=== PATIENT | male | born 1950 | race Caucasian/White ===

== ENCOUNTER → 2016-07-07 | Outpatient (CLI) | payer MEDICARE, OTHER ==
[2016-07-07 12:05] LABS: MEAN CORPUSCULAR HGB CONC 32.4 g/dl (32.0-36.5); MEAN CORPUSCULAR VOLUME 86.6 fl (80.0-96.0); RED CELL DISTRIBUTION WIDTH 13.4 % (11.5-14.5); WHITE BLOOD COUNT 6.5 K/mm3 (4.0-10.0)
[2016-07-09 14:15] LABS: PSA TOTAL 1.7 ng/mL (0.0-4.0); SEX HORMONE BINDING GLOBULIN 35.7 nmol/L (19.3-76.4)
== END ==
LOC: M LRY 07:57
PROVIDERS: ATTEND Urology
DX: E29.1 Testicular hypofunction (principal)

== ENCOUNTER → 2016-07-22 | Outpatient (REF) | payer MEDICARE, OTHER ==
[2016-07-22 17:56] LABS: ALBUMIN 3.9 GM/DL (3.2-5.2); ALBUMIN/GLOBULIN RATIO 1.34 (1.00-1.93); ALKALINE PHOSPHATASE 90 U/L (45-117); ALT/SGPT 25 U/L (12-78); ANION GAP 7 MEQ/L (8-16); AST/SGOT 17 U/L (15-37); BILIRUBIN,TOTAL 0.8 MG/DL (0.2-1.0); BLOOD UREA NITROGEN 16 MG/DL (7-18); CARBON DIOXIDE LEVEL 29 MEQ/L (21-32); CHLORIDE LEVEL 106 MEQ/L (98-107); CHOLESTEROL LEVEL 124 MG/DL (<200); CREATININE FOR GFR 1.02 MG/DL (0.70-1.30); GLOMERULAR FILTRATION RATE > 60.0 (>49); GLUCOSE, FASTING 91 MG/DL (80-110); POTASSIUM SERUM 4.7 MEQ/L (3.5-5.1); SODIUM LEVEL 142 MEQ/L (136-145); TOTAL PROTEIN 6.8 GM/DL (6.4-8.2); TRIGLYCERIDES LEVEL 165 MG/DL (<150)
[2016-07-22 18:34] LABS: MEAN CORPUSCULAR HEMOGLOBIN 28.6 pg (27.0-33.0); MEAN CORPUSCULAR HGB CONC 33.4 g/dl (32.0-36.5); MEAN CORPUSCULAR VOLUME 85.7 fl (80.0-96.0); RED CELL DISTRIBUTION WIDTH 13.6 % (11.5-14.5); WHITE BLOOD COUNT 6.6 K/mm3 (4.0-10.0)
== END ==
LOC: M SFHCLERA 10:13
PROVIDERS: ATTEND Family Medicine
DX: E78.2 Mixed hyperlipidemia (principal)
CPT/HCPCS: 80053; 80061; 82043; 85027; G0463

== ENCOUNTER → 2016-12-22 | Outpatient (REF) | payer MEDICARE, OTHER | LOC: M SFHCLERA 08:53 | PROVIDERS: ATTEND Family Medicine | DX: E29.1 Testicular hypofunction (principal); E55.9 Vitamin D deficiency, unspecified | CPT/HCPCS: 82306; 84402; 84403; G0463 ==

== ENCOUNTER 2017-05-04 06:40 | Day surgery (SDC) | payer MEDICARE, OTHER ==
[~2017-05-04] VITALS: Ht 172.7 cm; Wt 118.3 kg
[~2017-05-04 06:40] MED LIST: ALLO100T PO; ATOR40TA75 PO; CENT1TAB13 PO; LISI10TA4 PO; LUTE20TA PO; OCUVCAP2 PO; PROS5TAB PO; PROZ20CA11 PO; TARTCAP PO; TEST200I14 IM; VITA1CAP7 PO; VITAMIN B 1 PO; [UNRECOGNIZED DRUG - CODE] PO
[2017-05-04] MEDS ORDERED: NS 500 ML IV SCH (06:45)
[2017-05-04] MEDS ORDERED: PROPOFOL 200 MG/20 ML VIAL As Ordered ONE (07:07)
[2017-05-04] MEDS ORDERED: LIDOCAINE 2% INJ 100 MG/5 ML SDV (FOR ANES.) As Ordered ONE (07:09)
--- NOTE | 2017-05-04 07:58 | ROOR ---
Patient Name: Kiel Becerra Procedure Date: 05/04/2017 7:45 AM Date of : 1950 Age: 66 Room: [facility] Gender: Male Note Status: Finalized Procedure: Total Colonoscopy to Cecum Indications: High risk colon cancer surveillance: Personal history of colonic polyps, Last colonoscopy: 2013 Providers: Gabriele Purcell MD Referring MD: Ephraim Mccormack MD Requesting Provider: Medicines: Monitored Anesthesia Care Complications: No immediate complications. Procedure: Pre-Anesthesia Assessment: - The heart rate, respiratory rate, oxygen saturations, blood pressure, adequacy of pulmonary ventilation, and response to care were monitored throughout the procedure. The Colonoscope was introduced through the anus and advanced to the cecum, identified by appendiceal orifice and ileocecal valve. The colonoscopy was performed without difficulty. The patient tolerated the procedure well. The quality of the bowel preparation was excellent. Findings: The perianal and digital rectal examinations were normal. Non-bleeding internal hemorrhoids were found during retroflexion. The hemorrhoids were small and Grade I (internal hemorrhoids that do not prolapse). Scattered small-mouthed diverticula were found in the recto-sigmoid colon, sigmoid colon and descending colon. The exam was otherwise without abnormality on direct and retroflexion views. Impression: - Non-bleeding internal hemorrhoids. - Diverticulosis in the recto-sigmoid colon, in the sigmoid colon and in the descending colon. - The examination was otherwise normal on direct and retroflexion views. - No specimens collected. - The exam was otherwise normal to the cecum. Recommendation: - Patient has a contact number available for emergencies. The signs and symptoms of potential delayed complications were discussed with the patient. Return to normal activities tomorrow. Written discharge instructions were provided to the patient. - High fiber diet. - Discharge patient to home. - Continue present medications. - Repeat colonoscopy in 5 years for surveillance. - Return to referring physician. - The findings and recommendations were discussed with the patient's family. Gabriele Purcell MD Gabriele Purcell MD 05/04/2017 7:58:25 AM This report has been signed electronically. Number of Addenda: 0 Note Initiated On: 05/04/2017 7:45 AM Estimated Blood Loss: Estimated blood loss: none.
[2017-05-04 08:26] VITALS: BP 134/81
== END 2017-05-04 08:32 | disposition home or self-care (01) ==
LOC: M OPP 06:40
PROVIDERS: ATTEND Internal Medicine Gastroenterology
DX: Z12.11 Encounter for screening for malignant neoplasm of colon (principal); Z86.010 Personal history of colon polyps; K64.0 First degree hemorrhoids; K57.30 Diverticulosis of large intestine without perforation or abscess without bleeding; I10 Essential (primary) hypertension; E78.5 Hyperlipidemia, unspecified; M10.9 Gout, unspecified; M19.90 Unspecified osteoarthritis, unspecified site; M54.9 Dorsalgia, unspecified; Z85.820 Personal history of malignant melanoma of skin; R42 Dizziness and giddiness; N40.1 Benign prostatic hyperplasia with lower urinary tract symptoms; G56.00 Carpal tunnel syndrome, unspecified upper limb; Z88.0 Allergy status to penicillin; Z88.8 Allergy status to other drugs, medicaments and biological substances; Z88.1 Allergy status to other antibiotic agents; Z79.899 Other long term (current) drug therapy; Z79.82 Long term (current) use of aspirin

== ENCOUNTER → 2017-07-21 | Outpatient (REF) | payer MEDICARE, OTHER ==
[2017-07-21 20:44] LABS: HEMATOCRIT 52.8 % (42.0-52.0); HEMOGLOBIN 17.2 g/dl (14.0-18.0); MEAN CORPUSCULAR HEMOGLOBIN 28.3 pg (27.0-33.0); MEAN CORPUSCULAR HGB CONC 32.6 g/dl (32.0-36.5); MEAN CORPUSCULAR VOLUME 86.8 fl (80.0-96.0); PLATELET COUNT, AUTOMATED 212 10^3/uL (150-450); RED BLOOD COUNT 6.08 10^6/uL (4.30-6.10); RED CELL DISTRIBUTION WIDTH 14.6 % (11.5-14.5); WHITE BLOOD COUNT 9.3 10^3/uL (4.0-10.0)
[2017-07-21 21:00] LABS: ALBUMIN 3.8 GM/DL (3.2-5.2); ALBUMIN/GLOBULIN RATIO 1.36 (1.00-1.93); ALKALINE PHOSPHATASE 81 U/L (45-117); ALT/SGPT 27 U/L (12-78); ANION GAP 8 MEQ/L (8-16); AST/SGOT 16 U/L (7-37); BLOOD UREA NITROGEN 14 MG/DL (7-18); CALCIUM LEVEL 8.7 MG/DL (8.8-10.2); CARBON DIOXIDE LEVEL 29 MEQ/L (21-32); CHLORIDE LEVEL 106 MEQ/L (98-107); CHOLESTEROL LEVEL 112 MG/DL (<200); CHOLESTEROL RISK RATIO 2.731 (<5); CREATININE FOR GFR 0.95 MG/DL (0.70-1.30); GLOMERULAR FILTRATION RATE > 60.0 (>49); GLUCOSE, FASTING 74 MG/DL (70-100); HDL CHOLESTEROL 41 MG/DL (>40); LDL CHOLESTEROL 50.4 MG/DL (<100); NON-HDL-C 71 MG/DL; POTASSIUM SERUM 4.7 MEQ/L (3.5-5.1); SODIUM LEVEL 143 MEQ/L (136-145); TOTAL PROTEIN 6.6 GM/DL (6.4-8.2); TRIGLYCERIDES LEVEL 103 MG/DL (<150)
[2017-07-21 21:01] LABS: ESTIMATED AVERAGE GLUCOSE 114 MG/DL (60-110); HEMOGLOBIN A1c 5.6 %
[2017-07-21 21:40] LABS: MALB URINE SIEMENS 47.5 MG/L; MAU/CREAT RATIO 21.4 MCG/MG (0.0-30.0)
== END ==
LOC: M SFHCLERA 16:30
DX: I10 Essential (primary) hypertension (principal); Z79.899 Other long term (current) drug therapy
CPT/HCPCS: 84443

== ENCOUNTER → 2017-10-03 | Outpatient (CLI) | payer MEDICARE, OTHER ==
[2017-10-03 11:37] LABS: HEMATOCRIT 50.5 % (42.0-52.0); HEMOGLOBIN 16.7 g/dl (13.5-17.5); MEAN CORPUSCULAR HEMOGLOBIN 28.4 pg (27.0-33.0); MEAN CORPUSCULAR HGB CONC 33.1 g/dl (32.0-36.5); MEAN CORPUSCULAR VOLUME 85.7 fl (80.0-96.0); PLATELET COUNT, AUTOMATED 200 10^3/uL (150-450); RED BLOOD COUNT 5.89 10^6/uL (4.30-6.10); RED CELL DISTRIBUTION WIDTH 14.6 % (11.5-14.5)
[2017-10-03 12:06] LABS: TESTOSTERONE 1005 NG/DL (241-827)
[2017-10-03 13:42] LABS: ESTRADIOL 59.8 PG/ML (<39.8)
[2017-10-04 08:11] LABS: SEX HORMONE BINDING GLOBULIN 34.5 nmol/L (19.3-76.4)
== END ==
LOC: M LRY 08:12
DX: E29.1 Testicular hypofunction (principal); R35.0 Frequency of micturition
CPT/HCPCS: 84403

== ENCOUNTER → 2018-01-09 | Outpatient (CLI) | payer MEDICARE, OTHER ==
[2018-01-10 14:28] LABS: PSA TOTAL 3.9 ng/mL (0.0-4.0)
== END ==
LOC: M LRY 08:21
DX: R97.20 Elevated prostate specific antigen [PSA] (principal)
CPT/HCPCS: 84154

== ENCOUNTER → 2018-03-20 | Outpatient (CLI) | payer MEDICARE, OTHER ==
[2018-03-20 12:35] LABS: HEMATOCRIT 46.3 % (42.0-52.0); HEMOGLOBIN 15.5 g/dl (13.5-17.5); MEAN CORPUSCULAR HEMOGLOBIN 29.5 pg (27.0-33.0); MEAN CORPUSCULAR HGB CONC 33.5 g/dl (32.0-36.5); PLATELET COUNT, AUTOMATED 202 10^3/uL (150-450); RED BLOOD COUNT 5.26 10^6/uL (4.30-6.10); RED CELL DISTRIBUTION WIDTH 13.4 % (11.5-14.5); WHITE BLOOD COUNT 6.2 10^3/uL (4.0-10.0)
[2018-03-20 12:48] LABS: TESTOSTERONE 690 NG/DL (241-827)
[2018-03-20 12:48] LABS: ESTRADIOL 40.9 PG/ML (<39.8)
[2018-03-22 00:11] LABS: PSA % FREE 18.8 % (.); PSA FREE 0.81 ng/mL; PSA TOTAL 4.3 ng/mL (0.0-4.0)
== END ==
LOC: M LRY 07:59
DX: E29.1 Testicular hypofunction (principal); R35.0 Frequency of micturition
CPT/HCPCS: 84403

== ENCOUNTER → 2018-06-16 | Outpatient (REF) | payer MEDICARE, OTHER ==
[2018-06-16 11:36] LABS: ALBUMIN 3.7 GM/DL (3.2-5.2); ALT/SGPT 24 U/L (12-78); BASO # 0.1 10^3/uL (0.0-0.2); BASO % 1.1 % (0.0-1.0); BILIRUBIN,TOTAL 0.7 MG/DL (0.2-1.0); BLOOD UREA NITROGEN 18 MG/DL (7-18); CALCIUM LEVEL 8.6 MG/DL (8.8-10.2); CARBON DIOXIDE LEVEL 28 MEQ/L (21-32); CHLORIDE LEVEL 104 MEQ/L (98-107); CHOLESTEROL LEVEL 120 MG/DL (<200); CHOLESTEROL RISK RATIO 3.076 (<5); EOS # 0.2 10^3/uL (0.0-0.50); EOS % 2.5 % (0.0-3.0); GLOMERULAR FILTRATION RATE > 60.0 (>42); GLUCOSE, FASTING 90 MG/DL (70-100); HDL CHOLESTEROL 39 MG/DL (>40); HEMATOCRIT 49.9 % (42.0-52.0); HEMOGLOBIN 16.5 g/dl (13.5-17.5); LDL CHOLESTEROL 50 MG/DL (<100); LYMPH # 2.1 10^3/uL (1.5-4.5); LYMPH % 29.3 % (24.0-44.0); MEAN CORPUSCULAR HEMOGLOBIN 28.8 pg (27.0-33.0); MEAN CORPUSCULAR HGB CONC 33.1 g/dl (32.0-36.5); MEAN CORPUSCULAR VOLUME 87.2 fl (80.0-96.0); MONO # 0.8 10^3/uL (0.0-0.8); MONO % 10.6 % (0.0-5.0); NEUTROPHILS % 55.9 % (36.0-66.0); NON-HDL-C 81 MG/DL; PLATELET COUNT, AUTOMATED 201 10^3/uL (150-450); POTASSIUM SERUM 4.9 MEQ/L (3.5-5.1); RED BLOOD COUNT 5.72 10^6/uL (4.30-6.10); SODIUM LEVEL 141 MEQ/L (136-145); TOTAL PROTEIN 6.4 GM/DL (6.4-8.2); TRIGLYCERIDES LEVEL 157 MG/DL (<150); WHITE BLOOD COUNT 7.1 10^3/uL (4.0-10.0)
[2018-06-16 12:27] LABS: MALB URINE SIEMENS 26.9 MG/L; MAU/CREAT RATIO 10.2 MCG/MG (0.0-30.0)
== END ==
LOC: M SFHCLERA 08:10
PROVIDERS: ATTEND Family Medicine
DX: I10 Essential (primary) hypertension (principal)

== ENCOUNTER → 2018-10-09 | Outpatient (CLI) | payer MEDICARE, OTHER ==
[~2018-10-09] MED LIST changes: +D-3-50003 PO; -VITA1CAP7 PO
[2018-10-09 12:19] LABS: HEMATOCRIT 45.4 % (42.0-52.0); HEMOGLOBIN 14.8 g/dl (13.5-17.5); MEAN CORPUSCULAR HEMOGLOBIN 28.4 pg (27.0-33.0); MEAN CORPUSCULAR HGB CONC 32.6 g/dl (32.0-36.5); MEAN CORPUSCULAR VOLUME 87.1 fl (80.0-96.0); PLATELET COUNT, AUTOMATED 189 10^3/uL (150-450); RED BLOOD COUNT 5.21 10^6/uL (4.30-6.10); WHITE BLOOD COUNT 6.1 10^3/uL (4.0-10.0)
[2018-10-09 12:34] LABS: ESTRADIOL 36.4 PG/ML (<39.8)
[2018-10-10 14:16] LABS: PSA TOTAL 3.5 ng/mL (0.0-4.0); SEX HORMONE BINDING GLOBULIN 41.5 nmol/L (19.3-76.4)
== END ==
LOC: M LRY 08:00
PROVIDERS: ATTEND Urology
DX: E29.1 Testicular hypofunction (principal); R97.20 Elevated prostate specific antigen [PSA]

== ENCOUNTER → 2018-12-13 | Outpatient (REF) | payer MEDICARE, OTHER ==
[2018-12-13 11:29] LABS: BLOOD UREA NITROGEN 21 MG/DL (7-18); CALCIUM LEVEL 9.5 MG/DL (8.8-10.2); CARBON DIOXIDE LEVEL 30 MEQ/L (21-32); CHLORIDE LEVEL 106 MEQ/L (98-107); CREATININE FOR GFR 1.03 MG/DL (0.70-1.30); GLOMERULAR FILTRATION RATE > 60.0 (>42); GLUCOSE, FASTING 94 MG/DL (70-100); SODIUM LEVEL 141 MEQ/L (136-145)
== END ==
LOC: M SFHCLERA 08:10
PROVIDERS: ATTEND Family Medicine
DX: I10 Essential (primary) hypertension (principal); R73.09 Other abnormal glucose
CPT/HCPCS: 80048; 83036; G0463

== ENCOUNTER → 2019-02-28 | Outpatient (CLI) | payer MEDICARE, OTHER ==
[2019-02-28 12:17] LABS: BLOOD UREA NITROGEN 21 MG/DL (7-18); CREATININE FOR GFR 0.86 MG/DL (0.70-1.30); GLOMERULAR FILTRATION RATE > 60.0 (>42)
== END ==
LOC: M LAB 11:22
PROVIDERS: ATTEND Otolaryngology
DX: H90.3 Sensorineural hearing loss, bilateral (principal)

== ENCOUNTER → 2019-03-06 | Outpatient (CLI) | payer MEDICARE, OTHER ==
[~2019-03-06] MED LIST changes: +PROHANCE 279.3MG/ML 15ML VIAL (A9576) As Ordered ONE; +PROHANCE 279.3MG/ML 5ML VIAL (A9576) As Ordered ONE
--- NOTE | 2019-03-06 09:40 | REP ---
MRI brain and posterior fossa without and with IV contrast: History: Bilateral sensorineural hearing loss. Technique: Axial, coronal, and sagittal imaging planes were utilized. T1 and T2-weighted sequences include spin-echo, fast spin echo, FLAIR, diffusion weighted scans, thin section gradient echo T2-weighted scans through the posterior fossa, and post gadolinium enhanced whole brain and posterior fossa imaging. The gadolinium enhancement dose is 20 mL of intravenous ProHance. MRI findings: Bony calvarium is intact. Craniocervical junction and upper cervical cord are normal in appearance. There is no MR evidence of paranasal sinus disease. No intraorbital abnormality is appreciated. Internal auditory canals are normal and symmetric. Seventh and eighth nerves are unremarkable within the canals. No CP angle cistern mass lesion or abnormal vascular structure is appreciated. Vestibular and cochlear apparatus appear normal bilaterally. Postcontrast images show no abnormal intercanalicular or extra canalicular gadolinium enhancement. There is no abnormal intracranial contrast enhancement. Turbo spin echo T2 and FLAIR images demonstrate a few scattered foci of subcortical and periventricular white matter hyperintensity consistent with mild small vessel changes. Diffusion weighted scans show no evidence to suggest acute ischemia. No mass or infarct is seen. Impression: Minimal small vessel changes. Otherwise negative MRI brain and posterior fossa study without and with IV gadolinium. Electronically Signed by Frank Esparza MD 03/06/2019 10:44 A
== END ==
LOC: M RAD 02-28 10:56
PROVIDERS: ATTEND Otolaryngology
DX: H90.3 Sensorineural hearing loss, bilateral (principal)
CPT/HCPCS: 70553; A9576

== ENCOUNTER → 2019-03-15 | Outpatient (CLI) | payer MEDICARE, OTHER ==
[~2019-03-15] MED LIST changes: -PROHANCE 279.3MG/ML 15ML VIAL (A9576) As Ordered ONE; -PROHANCE 279.3MG/ML 5ML VIAL (A9576) As Ordered ONE
[2019-03-15 12:07] LABS: HEMATOCRIT 45.2 % (42.0-52.0); HEMOGLOBIN 14.5 g/dl (13.5-17.5); MEAN CORPUSCULAR HEMOGLOBIN 28.7 pg (27.0-33.0); MEAN CORPUSCULAR HGB CONC 32.1 g/dl (32.0-36.5); MEAN CORPUSCULAR VOLUME 89.3 fl (80.0-96.0); PLATELET COUNT, AUTOMATED 201 10^3/uL (150-450); RED BLOOD COUNT 5.06 10^6/uL (4.30-6.10); WHITE BLOOD COUNT 5.9 10^3/uL (4.0-10.0)
[2019-03-15 12:25] LABS: ESTRADIOL 25.8 PG/ML (<39.8)
[2019-03-16 08:20] LABS: PSA TOTAL 3.8 ng/mL (0.0-4.0); SEX HORMONE BINDING GLOBULIN 46.5 nmol/L (19.3-76.4)
== END ==
LOC: M LRY 07:53
PROVIDERS: ATTEND Urology
DX: E29.1 Testicular hypofunction (principal)
CPT/HCPCS: 36415; 82670; 84154; 84403; 85027; 90682; G0008

== ENCOUNTER → 2019-06-13 | Outpatient (REF) | payer MEDICARE, OTHER ==
[2019-06-13 12:31] LABS: BLOOD UREA NITROGEN 25 MG/DL (7-18); CALCIUM LEVEL 9.5 MG/DL (8.8-10.2); CARBON DIOXIDE LEVEL 25 MEQ/L (21-32); CHLORIDE LEVEL 109 MEQ/L (98-107); CREATININE FOR GFR 0.97 MG/DL (0.70-1.30); GLOMERULAR FILTRATION RATE > 60.0 (>42); GLUCOSE, FASTING 88 MG/DL (70-100); POTASSIUM SERUM 4.7 MEQ/L (3.5-5.1); SODIUM LEVEL 141 MEQ/L (136-145)
[2019-06-13 14:46] LABS: HEMOGLOBIN A1c 5.9 %
== END ==
LOC: M SFHCLERA 07:51
PROVIDERS: ATTEND Family Medicine
DX: I10 Essential (primary) hypertension (principal); R73.09 Other abnormal glucose; Z23 Encounter for immunization
CPT/HCPCS: 80048; 83036; 90471; 90715; G0463

== ENCOUNTER → 2019-07-11 | Outpatient (CLI) | payer MEDICARE, BC, OTHER | LOC: M SLEEP 19:31 | PROVIDERS: ATTEND Nurse Practitioner Family | DX: R06.83 Snoring (principal) ==

== ENCOUNTER → 2019-09-13 | Outpatient (CLI) | payer MEDICARE, BC, OTHER ==
[2019-09-13 12:43] LABS: HEMATOCRIT 47.8 % (42.0-52.0); HEMOGLOBIN 15.6 g/dl (13.5-17.5); MEAN CORPUSCULAR HEMOGLOBIN 28.9 pg (27.0-33.0); MEAN CORPUSCULAR HGB CONC 32.6 g/dl (32.0-36.5); MEAN CORPUSCULAR VOLUME 88.5 fl (80.0-96.0); PLATELET COUNT, AUTOMATED 186 10^3/uL (150-450); WHITE BLOOD COUNT 5.8 10^3/uL (4.0-10.0)
[2019-09-13 12:45] LABS: ESTRADIOL 27.9 PG/ML (<39.8)
== END ==
LOC: M LRY 07:58
PROVIDERS: ATTEND Urology
DX: E29.1 Testicular hypofunction (principal); Z12.5 Encounter for screening for malignant neoplasm of prostate
CPT/HCPCS: 36415; 82670; 84270; 84403; 85027; G0103

== ENCOUNTER → 2020-05-13 | Outpatient (REF) | payer MEDICARE, OTHER, BC ==
[~2020-05-13] MED LIST changes: +LISI10TA22 PO; -LISI10TA4 PO
[2020-05-13 13:29] LABS: BASO # 0.1 10^3/uL (0.0-0.2); EOS # 0.1 10^3/uL (0.0-0.5); EOS % 1.9 % (0.0-3.0); HEMATOCRIT 48.3 % (42.0-52.0); LYMPH # 1.7 10^3/uL (1.5-5.0); LYMPH % 26.3 % (24.0-44.0); MEAN CORPUSCULAR HEMOGLOBIN 27.6 pg (27.0-33.0); MEAN CORPUSCULAR HGB CONC 31.1 g/dl (32.0-36.5); MONO # 0.6 10^3/uL (0.0-0.8); MONO % 9.5 % (0.0-5.0); NEUTROPHILS # 3.8 10^3/uL (1.5-8.5); NEUTROPHILS % 60.7 % (36.0-66.0); PLATELET COUNT, AUTOMATED 198 10^3/uL (150-450); RED BLOOD COUNT 5.43 10^6/uL (4.30-6.10); WHITE BLOOD COUNT 6.3 10^3/uL (4.0-10.0)
[2020-05-13 13:37] LABS: ALBUMIN 3.8 GM/DL (3.2-5.2); ALT/SGPT 26 U/L (12-78); BILIRUBIN,TOTAL 0.6 MG/DL (0.2-1.0); BLOOD UREA NITROGEN 19 MG/DL (7-18); CALCIUM LEVEL 8.9 MG/DL (8.8-10.2); CARBON DIOXIDE LEVEL 29 MEQ/L (21-32); CHLORIDE LEVEL 106 MEQ/L (98-107); CHOLESTEROL LEVEL 120 MG/DL (<200); CHOLESTEROL RISK RATIO 2.666 (<5); CREATININE FOR GFR 0.98 MG/DL (0.70-1.30); GLOMERULAR FILTRATION RATE > 60.0 (>42); GLUCOSE, FASTING 88 MG/DL (70-100); HDL CHOLESTEROL 45 MG/DL (>40); LDL CHOLESTEROL 59 MG/DL (<100); NON-HDL-C 75 MG/DL; POTASSIUM SERUM 4.5 MEQ/L (3.5-5.1); SODIUM LEVEL 140 MEQ/L (136-145); TOTAL PROTEIN 6.4 GM/DL (6.4-8.2); TRIGLYCERIDES LEVEL 82 MG/DL (<150)
[2020-05-13 14:09] LABS: HEMOGLOBIN A1c 5.7 %
== END ==
LOC: M SFHCLERA 12:14
PROVIDERS: ATTEND Family Medicine
DX: R73.01 Impaired fasting glucose (principal); E55.9 Vitamin D deficiency, unspecified; E78.2 Mixed hyperlipidemia; I10 Essential (primary) hypertension
CPT/HCPCS: 80053; 80061; 82306; 83036; 85025; G0463

== ENCOUNTER → 2020-09-17 | Outpatient (REF) | payer MEDICARE, OTHER, BC ==
[2020-09-17 13:20] LABS: HEMATOCRIT 48.5 % (42.0-52.0); HEMOGLOBIN 15.5 g/dl (13.5-17.5); MEAN CORPUSCULAR HEMOGLOBIN 28.3 pg (27.0-33.0); MEAN CORPUSCULAR VOLUME 88.7 fl (80.0-96.0); PLATELET COUNT, AUTOMATED 194 10^3/uL (150-450); RED BLOOD COUNT 5.47 10^6/uL (4.30-6.10); WHITE BLOOD COUNT 6.8 10^3/uL (4.0-10.0)
[2020-09-17 13:50] LABS: PROSTATIC SPECIFIC AG MONITOR 4.4 NG/ML (< 4.00)
== END ==
LOC: M LAB REF 11:07
PROVIDERS: ATTEND Urology
DX: R97.20 Elevated prostate specific antigen [PSA] (principal); R39.12 Poor urinary stream; R33.9 Retention of urine, unspecified

== ENCOUNTER → 2020-11-05 | Outpatient (REF) | payer MEDICARE, OTHER, BC ==
[2020-11-05 16:54] LABS: BASO # 0.1 10^3/uL (0.0-0.2); EOS # 0.1 10^3/uL (0.0-0.5); EOS % 2.1 % (0.0-3.0); HEMATOCRIT 48.1 % (42.0-52.0); HEMOGLOBIN 15.3 g/dl (13.5-17.5); LYMPH # 1.7 10^3/uL (1.5-5.0); LYMPH % 24.7 % (24.0-44.0); MEAN CORPUSCULAR HEMOGLOBIN 28.3 pg (27.0-33.0); MEAN CORPUSCULAR HGB CONC 31.8 g/dl (32.0-36.5); MEAN CORPUSCULAR VOLUME 89.1 fl (80.0-96.0); MONO # 0.5 10^3/uL (0.0-0.8); MONO % 7.8 % (2.0-8.0); NEUTROPHILS # 4.4 10^3/uL (1.5-8.5); PLATELET COUNT, AUTOMATED 212 10^3/uL (150-450); WHITE BLOOD COUNT 6.8 10^3/uL (4.0-10.0)
[2020-11-05 17:23] LABS: ALBUMIN 3.5 GM/DL (3.2-5.2); ALT/SGPT 31 U/L (12-78); BILIRUBIN,TOTAL 0.9 MG/DL (0.2-1.0); BLOOD UREA NITROGEN 18 MG/DL (7-18); CALCIUM LEVEL 8.9 MG/DL (8.8-10.2); CARBON DIOXIDE LEVEL 29 MEQ/L (21-32); CHLORIDE LEVEL 106 MEQ/L (98-107); CREATININE FOR GFR 0.77 MG/DL (0.70-1.30); GLOMERULAR FILTRATION RATE > 60.0 (>42); GLUCOSE, FASTING 66 MG/DL (70-100); POTASSIUM SERUM 4.5 MEQ/L (3.5-5.1); SODIUM LEVEL 143 MEQ/L (136-145); TOTAL PROTEIN 6.4 GM/DL (6.4-8.2)
[2020-11-05 20:49] LABS: HEMOGLOBIN A1c 5.7 %
== END ==
LOC: M SFHCLERA 16:10
PROVIDERS: ATTEND Family Medicine
DX: R73.01 Impaired fasting glucose (principal)

== ENCOUNTER 2021-04-19 16:59 | Emergency (ER) | payer MEDICARE, OTHER, BC ==
[~2021-04-19] VITALS: Ht 175.3 cm; Wt 122.5 kg
[2021-04-19] MEDS ORDERED: FLUO20CA22 (17:12)
--- NOTE | 2021-04-19 17:51 | REP ---
INDICATION: felt pop COMPARISON: None. TECHNIQUE: AP, lateral, bilateral oblique views of the left elbow. FINDINGS: Degenerative changes. No evidence for acute fracture or dislocation. Lateral view demonstrates no evidence for effusion. IMPRESSION: Degenerative changes. No acute fracture or dislocation. <Electronically signed by Elías Yeboah > 04/19/21 [id number]
--- OUTSIDE RECORDS SUMMARY | 2021-04-19 20:21 | CCD ---
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 Role Phone [place] YAO, CRISTELA, Pola Armenta Unavailable [phone] Julius Galicia MD PP [phone] [place] Unavailable [phone] Reason for Referral No Reason for Referral Recorded Problems Includes: Active, inactive, and resolved Problems All Visits Onset Date - Time Resolved Date - Time Provider Co ndition Status Subconjunctival Hemorrhage 03/26/2019 - 12:00AM Unknown - Unknow n Pola Chawla MD, FACS Resolved Macular Degeneration Nonexudative Bilateral Early Dry Stage 10/17/2018 - 12:00AM Pola Chawla MD, FACS Active Dry Eye Syndrome 01/02/2018 - 12:00AM Pola shipman MD, FACS Inactive Conjunctivitis Chronic Allergic 12/23/2016 - 12:00AM Pola Chawla MD, FACS Active Drusen 12/23/2016 - 12:00AM Pola Chawla MD, FACS Inactive Retinopathy Hypertensive 12/23/2016 - 12:00AM Pola Chawla MD, FACS Inactive Pinguecula Bilateral 12/23/2016 - 12:00AM Pola Callejas MD, FACS Inactive Cataract Senile Nuclear 12/23/2016 - 12:00AM Pola Chawla MD, FACS Active Vitreous Disorders Degeneration 12/23/2016 - 12:00AM Pola Chawla MD, FACS Inactive Squamous blepharitis right lower eyelid 12/23/2015 - 12:00AM Pola Martinez MD, FACS Active Squamous blepharitis left lower eyelid 12/23/2015 - 12:00AM Pola Martinez MD, FACS Active Squamous blepharitis left upper eyelid 12/23/2015 - 12:00AM Pola Martinez MD, FACS Active Blepharitis Squamous 12/23/2015 - 12:00AM Pola Callejas MD, FACS Active Pinguecula, bilateral 06/05/2015 - 12:00AM Pola Perez MD, FACS Active Vitreous degeneration, bilateral 06/05/2015 - 12:00AM Pola Chawla MD, FACS Active Essential Hypertension 04/07/2015 - 12:00AM Pola Torre MD, FACS Active Drusen Both Eyes 08/05/2014 - 12:00AM Pola shipman MD, FACS Inactive Note: Unchanged Retinopathy Hypertensive Both Eyes 07/18/2013 - 12:00AM Pola Chawla MD, FACS Active Note: Unchanged Myelinated Optic Nerve Fibers Both Eyes 07/18/2013 - 12:00AM Pola Martinez MD, FACS Active Note: Unchanged Pinguecula 07/18/2013 - 12:00AM Pola Chawla MD, FACS Inactive Note: Unchanged Dry Eye Syndrome Both Eyes 07/18/2013 - 12:00AM Pola Chawla MD, FACS Active Note: Unchanged Vitreous Floaters Both Eyes 07/18/2013 - 12:00AM Pola Chawla MD, FACS Inactive Note: Unchanged Plan of Treatment No Plan of Treatment Recorded Assessments Includes: Assessments for all patient encounters Findings Encounter Date Dry eye syndrome of both eyes 7 Month Follow-Up and Te sting with Pola Martinez MD, FACS 08/18/2020 Early dry stage nonexudative macular degeneration of b oth eyes 7 Month Follow-Up and Testing with Pola Chawla MD, FACS 08/18/2020 Essential hypertension 7 Month Follow-Up and Testin g with Pola Chawla MD, FACS 08/18/2020 Hypertensive retinopathy of both eyes 7 Month Follow-U p and Testing with Pola Chawla MD, FACS 08/18/2020 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 7 Month Fol low-Up and Testing with Pola Chawla MD, FACS 08/18/2020 Nuclear senile cataract 7 Month Follow-Up and Testin g with Pola Chawla MD, FACS 08/18/2020 Dry eye syndrome of both eyes 7 Month Follow-Up with Mellisa Chawla MD, FACS 01/15/2020 Early dry stage nonexudative macular degeneration of b oth eyes 7 Month Follow-Up with Pola Chawla MD, FACS 01/15/2020 Essential hypertension 7 Month Follow-Up with Pola Lai MD, FACS 01/15/2020 Hypertensive retinopathy of both eyes 7 Month Follow-U p with Pola Chawla MD, FACS 01/15/2020 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 7 Month Fol low-Up with Pola Chawla MD, FACS 01/15/2020 Nuclear senile cataract 7 Month Follow-Up with Pola Jefferson MD, FACS 01/15/2020 Dry eye syndrome of both eyes 8 Month Follow-Up with Mellisa Chawla MD, FACS 06/18/2019 Early dry stage nonexudative macular degeneration of b oth eyes 8 Month Follow-Up with Pola Chawla MD, FACS 06/18/2019 Essential hypertension 8 Month Follow-Up with Pola Lai MD, FACS 06/18/2019 Nuclear senile cataract 8 Month Follow-Up with Pola Jefferson MD, FACS 06/18/2019 Subconjunctival hemorrhage TRIAGE URGENT with Pola Lai MD, FACS 03/26/2019 Dry eye syndrome of both eyes 9 Month Follow-Up with T esting with Pola Chawla MD, FACS 09/28/2018 Early dry stage nonexudative macular degeneration of b oth eyes 9 Month Follow-Up with Testing with Pola Chawla MD, FACS 09/28/2018 Essential hypertension 9 Month Follow-Up with Testi ng with Pola Chawla MD, FACS 09/28/2018 Hypertensive retinopathy of both eyes 9 Month Follow-U p with Testing with Pola Chawla MD, FACS 09/28/2018 Nuclear senile cataract 9 Month Follow-Up with Testi ng with Pola Chawla MD, FACS 09/28/2018 Squamous blepharitis right lower eyelid and left lowe r eyelid TRIAGE NON URGENT with Pola Chawla MD, FACS 06/22/2018 Drusen 1 Year Follow-Up with Pola watt MD, FACS 01/02/2018 Dry eye syndrome 1 Year Follow-Up with Pola watt MD, FACS 01/02/2018 Early dry stage nonexudative macular degeneration of b oth eyes 1 Year Follow-Up with Pola Chawla MD, FACS 01/02/2018 Essential hypertension 1 Year Follow-Up with Pola Martinez MD, FACS 01/02/2018 Hypertensive retinopathy 1 Year Follow-Up with Pola Jefferson MD, FACS 01/02/2018 Bilateral myopia RECHECK GLASSES RX with Pola shipman MD, FACS 03/15/2017 Bilateral hypermetropia REFRACTION with Pola Chawla MD, FACS 02/28/2017 Bilateral pinguecula 1 Year Follow-Up with Pola wise MD, FACS 12/23/2016 Chronic allergic conjunctivitis 1 Year Follow-Up with Pola Chawla MD, FACS 12/23/2016 Drusen 1 Year Follow-Up with Pola watt MD, FACS 12/23/2016 Dry eye syndrome of both eyes 1 Year Follow-Up with Doni Chawla MD, FACS 12/23/2016 Essential hypertension 1 Year Follow-Up with Pola Martinez MD, FACS 12/23/2016 Hypertensive retinopathy 1 Year Follow-Up with Pola Jefferson MD, FACS 12/23/2016 Nuclear senile cataract 1 Year Follow-Up with Pola Lai MD, FACS 12/23/2016 Squamous blepharitis 1 Year Follow-Up with Pola wise MD, FACS 12/23/2016 Vitreous degeneration 1 Year Follow-Up with Pola shipman MD, FACS 12/23/2016 Drusen of both eyes 8 Month Follow-Up with Pola wise MD, FACS 12/23/2015 Dry eye syndrome of both eyes 8 Month Follow-Up with Mellisa Chawla MD, FACS 12/23/2015 Essential hypertension 8 Month Follow-Up with Pola Lai MD, FACS 12/23/2015 Hypertensive retinopathy of both eyes 8 Month Follow-U p with Pola Chawla MD, FACS 12/23/2015 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 8 Month Fol low-Up with Pola Chawla MD, FACS 12/23/2015 Squamous blepharitis 8 Month Follow-Up with Pola shipman MD, FACS 12/23/2015 Dry eye syndrome of both eyes 9 Month Follow-Up with Mellisa Chawla MD, FACS 04/07/2015 Essential hypertension 9 Month Follow-Up with Pola Lai MD, FACS 04/07/2015 Hypertensive retinopathy of both eyes 9 Month Follow-U p with Pola Chawla MD, FACS 04/07/2015 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 9 Month Fol low-Up with Pola Chawla MD, FACS 04/07/2015 Dermatochalasis of both eyes 1 Year Follow-Up with Pola Chawla MD, FACS 08/05/2014 Drusen of both eyes 1 Year Follow-Up with Pola watt MD, FACS 08/05/2014 Dry eye syndrome of both eyes 1 Year Follow-Up with Doni Chawla MD, FACS 08/05/2014 Hypertensive retinopathy of both eyes 1 Year Follow-Up with Pola Chawla MD, FACS 08/05/2014 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 1 Year Foll ow-Up with Pola Martinez MD, FACS 08/05/2014 Pinguecula of both eyes 1 Year Follow-Up with Pola Jefferson MD, FACS 08/05/2014 Vitreous floaters in both eyes 1 Year Follow-Up with Mellisa Chawla MD, FACS 08/05/2014 Dermatochalasis of both eyes NEW PATIENT with Pola Lai MD, FACS 07/18/2013 Dry eye syndrome of both eyes NEW PATIENT with Pola Jefferson MD, FACS 07/18/2013 Hypertensive retinopathy of both eyes NEW PATIENT with Pola Chawla MD, FACS 07/18/2013 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 NEW PATIENT with Pola Chawla MD, FACS 07/18/2013 Pinguecula of both eyes NEW PATIENT with Pola watt MD, FACS 07/18/2013 Vitreous floaters in both eyes NEW PATIENT with Pola Callejas MD, FACS 07/18/2013 Instructions Instructions not supported for this document typeNo Instructions Recorded Medical Equipment - Implanted Devices Includes: Current and historical DevicesNo Medical Equipment Recorded Medications Includes: Current and historical Medications Current Medications (continue as prescribed) Tumeric/Curcumin 200 MG Oral Tablet 06/18/2019 Prov ider: Diagnosis: Vitamin B-1 250 MG Oral Tablet 06/18/2019 Provider: Diagnosis: Testosterone Cypionate 200MG/ML Intramuscular Solution 12/23 Provider: Diagnosis: Proscar 5MG Oral Tablet 12/23/2016 Provider: Diagnosis: EQ One Daily Mens Health Oral Tablet 12/23/2016 Pro vider: Diagnosis: GNP Vitamin D 1000UNIT Oral Tablet 12/23/2016 Provi eliza: Diagnosis: FLUoxetine HCl 20MG Oral Capsule 12/23/2016 Provide r: Diagnosis: Atorvastatin Calcium 40 MG Tablet 12/23/2015 Provid er: Diagnosis: Lutein 20 MG Tablet 04/07/2015 Provider: Diagnosis: Tart [place] Advanced Capsule, conventional 04/07/2015 Provider: Diagnosis: Ocuvite Tablet 04/07/2015 Provider: Diagnosis: Aspirin 81 MG OR TABS 07/18/2013 Provider: Diagnosis: Advil Migraine 200 MG OR CAPS 07/18/2013 Provider: Diagnosis: HM Vitamin B12 1000 MCG OR TBCR 07/18/2013 Provider : Diagnosis: HM Vitamin D3 100 MCG (4000 UT) OR CAPS 07/18/2013 Provider: Diagnosis: Voltaren 1% TD GEL 07/18/2013 Provider: Diagnosis: Allopurinol 100 MG OR TABS 07/18/2013 Provider: Diagnosis: Levitra 10 MG OR TABS 07/18/2013 Provider: Diagnosis: PROzac 10 MG OR CAPS 07/18/2013 Provider: Diagnosis: Lisinopril 10 MG OR TABS 07/18/2013 Provider: Diagnosis: Past Medications on file Erythromycin 5MG/GM Ophthalmic Ointment 06/22/2018 - 019 Provider: Pola Chawla MD, FACS Diagnosis: Squamous blepharitis right lower eyelid apply thin bead to right lower eyelid at bedtime for 1 week Vitamin B-1 250MG Oral Tablet 12/23/2016 - 06/18/2019 Provid er: Diagnosis: during bug season [place] 3 1000MG Oral Capsule 12/23/2016 - 06/18/2019 Provider : Diagnosis: [facility] Vitamin B-12 1000MCG Oral Tablet 12/23/2016 - 06/18/2019 Provider: Diagnosis: Healthy Heart Tablet 04/07/2015 - 12/23/2016 Provider: Diagnosis: Dialyvite Vitamin D 5000 125 MCG (5000 UT) OR CAPS 5 - 12/23/2016 Provider: Diagnosis: Azelastine HCl 0.1% NA SOLN 07/18/2013 - 12/23/2016 Provider : Diagnosis: 2 sprays twice a day Neurontin 100 MG OR CAPS 07/18/2013 - 12/23/2016 Provider: Diagnosis: Lipo-Flavonoid Plus OR TABS 07/18/2013 - 06/18/2019 Provider : Diagnosis: [facility] Fish Oil 1000 MG OR CAPS 07/18/2013 - 06/18/2019 Provide r: Diagnosis: Medications Administered Includes: Administered Medications in patient's chartNo Administered Medications Recorded Vital Signs Includes: Vital Signs from 03/23/2020 through 03/23/2021No Vital Signs Recorded For Specified Dates Results Includes: Results from 03/23/2020 through 03/23/2021No Results Recorded For Specified Dates History of Present Illness History of Present Illness not supported for this document typeNo History of Present Illness Recorded Social History Description Last Updated Tobacco non-user 08/18/2020 No tobacco use 01/15/2020 Not using drugs 01/15/2020 Smoking status : Never smoker 01/15/2020 Alcohol use 1 bottle q2 weeks 06/18/2019 Never smoked 03/26/2019 Alcohol 08/05/2014 Procedures and Surgical History Includes: Procedures from 03/23/2020 through 03/23/2021 Procedures Code Diagnosis Performing Provider Service Location Service Date Scodi Retina, with interpretation and re port (WAIVER OF LIABILITY ON FILE (ABN)) 36668 Nexdtve age-related mclr degn, bilateral , early dry stage Pola Martinez MD, CRISTELA Chawla MD [facility] 08/18/2020 Comprehensive eye exam established patient (Signi/Sep Eval. & Man.) 65131 Nexdtve age-related mclr degn, bilateral, early dry stage, Essential (primary) hypertension, Congenital malformation of optic disc, Hypertensive retinopathy, bilateral Pola Chawla MD, CRISTELA Chawla MD [facility] 2020 Surgical History Last Updated Surgical / procedural history : Rt. Test icle surgery - 1963, Umbilical Hernia - 1999, Bilateral Cartilage repair (R. Cartilage 2004 L. Cartilage 2007), Carpal tunnel surgery both hands - 2004, Basal Cell cancer removed: Forehead x2 - 1999 and 2006, Shoulder - 1999, Nose - 2007, Melanoma removed from neck - 2007 (Stage 1), Lt foot Angiomyoma - 2011, De Quervain's - 2013 10/17/2018 Medical History Includes: Medical History in patient's chart Description Last Updated History of essential hypertension 10/17/2018 Reported medical history : Vertigo, GOUT 04/07/2015 No recent change in medical history 08/05/2014 Currently wearing eyeglasses 07/18/2013 Not wearing contact lenses 07/18/2013 History of hypertension 07/18/2013 Family History Includes: Family History in patient's chart Description Last Updated Maternal history of family history of cancer 0 Maternal history of macular degeneration 01/15/2020 Paternal history of family history of cancer 0 Review of Systems Review of Systems not supported for this document typeNo Review of Systems Recorded Mental Status Mental Status not supported for this document typeNo Mental Status Recorded Functional Status Functional Status not supported for this document typeNo Functional Status Recorded Physical Exam Physical Exam not supported for this document typeNo Physical Exam Recorded Immunizations Includes: Immunizations in patient's chartNo Immunizations Recorded Allergies Includes: Active, inactive, and resolved Allergies Substance Type Reaction Onset Date - Time Resolved Date - Ti me Status Penicillin G Benzathine Allergy 07/18/2013 - 12:00AM Active Colchicine-Probenecid Allergy 07/18/2013 - 12:00AM Active Cipro Allergy 07/18/2013 - 12:00AM Acti ve Encounters Includes: Encounters from 03/23/2020 through 03/23/2021 Encounter Provider Location Date Check-In Time Check-Out Time D iagnosis 7 Month Follow-Up Pola Chawla MD, FACS Pola Chawla MD [facility] 03/09/2021 7:19AM 8:12AM 7 Month Follow-Up and Testing Pola Chawla MD, FACS Mellisa Chawla MD [facility] 08/18/2020 7:25AM 8:20AM Essential Hypert ension, Cataract Senile Nuclear, Retinopathy Hypertensive Both Eyes, Dry Eye Syndrome Both Eyes, Myelinated Optic Nerve Fibers Both Eyes, Macular Degeneration Nonexudative Bilateral Early Dry Stage Insurance Includes: Active Insurance Policies Plan Name Member ID Group # Subscriber Relationship Effective Da elizabeth 1 - Medicare Part B [facility] ([facility] [place] [id number] Kiel Becerra Jr Self 2 - [employer] /PRIOR AUTHS NEEDED [id number] Kiel Becerra Jr Self 3 - [employer]/BS [id number] Kiel Becerra Jr Self Advance Directives Includes: Current Advance DirectivesNo Advance Directives Recorded Health Concerns Includes: Active Health ConcernsNo Active Health Concerns Recorded Goals Includes: Active GoalsNo Active Goals Recorded Interventions Includes: Interventions for active GoalsNo Interventions Recorded Evaluations & Outcomes Includes: Evaluations & Outcomes for active GoalsNo Outcomes Recorded
--- OUTSIDE RECORDS SUMMARY | 2021-04-19 20:21 | CCD ---
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 Name Role Phone CHERY, DEJA PA Unavailable Unavailable CHERY, DEJA PA Unavailable Unavailable CHERY, DEJA PA Unavailable Unavailable CHERY, DEJA PA Unavailable Unavailable CHERY, DEJA PA Unavailable Unavailable CHERY, DEJA PA Unavailable Unavailable CHERY, DEJA PA Unavailable Unavailable CHERY, DEJA PA Unavailable Unavailable CHERY, DEJA PA Unavailable Unavailable CHERY, DEJA PA Unavailable Unavailable CHERY, DEJA PA Unavailable Unavailable Dumont Martinez, Benjamin Escalona MD, FACS Unavailable Unavailable Duomnt Martinez, Benjamin Escalona MD, FACS Unavailable Unavailable Dumont Martinez, Benjamin Escalona MD, FACS Unavailable Unavailable Dumont Martinez, Benjamin Escalona MD, FACS Unavailable Unavailable Dumont Martinez, Benjamin Escalona MD, FACS Unavailable Unavailable Dumont Martinez, Benjamin Escalona MD, FACS Unavailable Unavailable Dumont Martinez, Benjamin Escalona MD, FACS Unavailable Unavailable Dumont Martinez, Benjamin Escalona MD, FACS Unavailable Unavailable Dumont Martinez, Benjamin Escalona MD, FACS Unavailable Unavailable Dumont Martinez, Benjamin Escalona MD, FACS Unavailable Unavailable Dumont Martinez, Benjamin Escalona MD, FACS Unavailable Unavailable Dumont Martinez, Bnejamin Escalona MD, FACS Unavailable Unavailable Dumont Martinez, Benjamin Escalona MD, FACS Unavailable Unavailable Dumont Martinez, Benjamin Escalona MD, FACS Unavailable Unavailable Dumont Martinez, Benjamin Escalona MD, FACS Unavailable Unavailable Dumont Martinez, Benjamin Escalona MD, FACS Unavailable Unavailable Dumont Martinez, Benjamin Escalona MD, FACS Unavailable Unavailable Dumont Martinez, Benjamin Escalona MD, FACS Unavailable Unavailable Dumont Martinez, Benjamin Escalona MD, FACS Unavailable Unavailable Dumont Mratinez, Benjamin Escalona MD, FACS Unavailable Unavailable Dumont Martinez, Benjamin Escalona MD, FACS Unavailable Unavailable Dumont Martinez, Benjamin Escalona MD, FACS Unavailable Unavailable Dumont Martinez, Benjamin Escalona MD, FACS Unavailable Unavailable Dumont Martinez, Benjamin Escalona MD, FACS Unavailable Unavailable Dumont Martinez, Benjamin Escalona MD, FACS Unavailable Unavailable Dumont Martinez, Benjamin Escalona MD, FACS Unavailable Unavailable Dumont Martinez, Benjamin Escalona MD, FACS Unavailable Unavailable Dumont Martinez, Benjamin Escalona MD, FACS Unavailable Unavailable Dumont Martinez, Benjamin Escalona MD, FACS Unavailable Unavailable Dumont Martinez, Benjamin Escalona MD, FACS Unavailable Unavailable Dumont Martinez, Benjamin Escalona MD, FACS Unavailable Unavailable Dumont Martinez, Benjamin Escalona MD, FACS Unavailable Unavailable Dumont Martinez, Benjamin Escalona MD, FACS Unavailable Unavailable Dumont Martinez, Benjamin Escalona MD, FACS Unavailable Unavailable Dumont Martinez, Benjamin Escalona MD, FACS Unavailable Unavailable Dumont Martinez, Benjamin Escalona MD, FACS Unavailable Unavailable Dumont Martinez, Benjamin Escalona MD, FACS Unavailable Unavailable Dumont Martinez, Benjamin Escalona MD, FACS Unavailable Unavailable Dumont Martinez, Benjamin Escalona MD, FACS Unavailable Unavailable Re-disclosure Warning The records that you are about to access may contain information from federally-assisted alcohol or drug abuse programs. If such information is present, then the following federally mandated warning applies: This information has been disclosed to you from records protected by federal confidentiality rules (42 CFR part 2). The federal rules prohibit you from making any further disclosure of this information unless further disclosure is expressly permitted by the written consent of the person to whom it pertains or as otherwise permitted by 42 CFR part 2. A general authorization for the release of medical or other information is NOT sufficient for this purpose. The Federal rules restrict any use of the information to criminally investigate or prosecute any alcohol or drug abuse patient.The records that you are about to access may contain highly sensitive health information, the redisclosure of which is protected by Article 27-F of the [facility] Public Health law. If you continue you may have access to information: Regarding HIV / AIDS; Provided by facilities licensed or operated by the [facility] Office of Mental Health; or Provided by the [facility] Office for People With Developmental Disabilities. If such information is present, then the following [facility] mandated warning applies: This information has been disclosed to you from confidential records which are protected by state law. State law prohibits you from making any further disclosure of this information without the specific written consent of the person to whom it pertains, or as otherwise permitted by law. Any unauthorized further disclosure in violation of state law may result in a fine or alf sentence or both. A general authorization for the release of medical or other information is NOT sufficient authorization for further disc losure. Family History Family Member Name Family Member Gender Family Member Status Date o f Status Description Data Source(s) Unknown Female Problem [facility] ([facility]) Encounters Encounter Providers Location Date Indications Data Source(s ) Outpatient<td ID="encounterTypeDescripti onID0">7 Month Follow-Up</td><td>Pola Chawla MD, FACS</td><td>Pola Chawla MD [facility]</td><td>03/09/2021</td><td>7:19AM</td><td>8:12AM</td><td></td> Attender: Pola Martinez MD, CRISTELA Chawla MD [facility] 03/09/2021 07:19:00 AM EDT - 03/09/2021 08:12:00 AM EDT [place] (Pola watt MD [facility]) Outpatient Attender: DEJA WILKINS CPSCAORT-CPSLADER 10:38:00 AM EDT - 11/11/2020 10:39:00 AM EDT [facility] Patient discharged[facility] Out[place] [address] [facility] [address] 11/11/2020 12:00:00 AM EDT eCW1 ([facility]) <td ID="encounterTypeDescriptionID1">7 M onth Follow-Up and Testing</td><td>Pola Chawla MD, FACS</td><td>Pola Chawla MD [facility]</td><td>08/18/2020</td><td>7:25AM</td><td>8:20AM</td><td><content ID="encounterDiagnosisID1-0">Essential Hypertension</content>, <content ID="encounterDiagnosisID1-1">Cataract Senile Nuclear</content>, <content ID="encounterDiagnosisID1-2">Retinopathy Hypertensive Both Eyes</content>, <content ID="encounterDiagnosisID1-3">Dry Eye Syndrome Both Eyes</content>, <content ID="encounterDiagnosisID1-4">Myelinated Optic Nerve Fibers Both Eyes< /content>, <content ID="encounterDiagnosisID1-5">Macular Degeneration Nonexudative Bilateral Early Dry Stage</content></td>Outpatient Attender: Pola Martinez MD, FACS Pola Chawla MD [facility] 08/18/2020 07:25:00 AM EDT - 08/18/2020 08:20:00 AM EDT Macular Degeneration Nonexudative Bilate ral Early Dry StageMacular Degeneration Nonexudative Bilateral Early Dry StageCataract Senile NuclearCataract Senile NuclearEssential HypertensionEssential Hypertension Myelinated Optic Nerve Fibers Both EyesDry Eye Syndrome Both EyesRetinopathy Hypertensive Both EyesMyelinated Optic Nerve Fibers Both EyesDry Eye Syndrome Both EyesRetinopathy Hypertensive Both Eyes [facility] (Pola Martinez MD [facility]) Macular Degeneration Nonexudative Bilate ral Early Dry Stage Macular Degeneration Nonexudative Bilate ral Early Dry Stage Cataract Senile Nuclear Cataract Senile Nuclear Essential Hypertension Essential Hypertension 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 COVID-19 VACCINE Pfizer 07/19/2020 12:00:00 AM EST completed [facility] Vaccine Series Complete: YESThis Data wa s Submitted to [facility] [employer]. COVID-19 VACCINE, MRNA, [id number], LNP-S (PFIZER)/PF 07/19/19 12:00:00 AM EST completed [facility] COVID-19 VACCINE Pfizer 06/28/2020 12:00:00 AM EST completed [facility] Vaccine Series Complete: NOThis Data was Submitted to [facility] [employer]. COVID-19 VACCINE, MRNA, [id number], LNP-S (PFIZER)/PF 06/28/19 12:00:00 AM EST completed [facility] INFLUENZA VIRUS VACCINE QUADRIVALENT (6 MOS AN D UP) 02/26/2020 12:00:00 AM EDT completed [facility] Medications Medication Brand Name Start Date Product Form Dose Route Admi nistrative Instructions Pharmacy Instructions Status Indications Reaction Description Data Source(s) 60 mcg (15 mcg x 4)/0.5 mL 02/24/2021 12:00:00 AM EDT syring e 0 INJECT INTRAMUSCULARLY DIRECTED INJECT INTRAMUSCULARLY DIRECTED SOLD: 02/24/2021 [facility] 1 % 05/14/2020 12:00:00 AM EST gel 100 APPLY TO LEFT LEG AND LOW BACK UP TO FOUR TIMES A DAY NEEDED APPLY TO LEFT LEG AND LOW BACK UP TO FOU R TIMES A DAY NEEDED SOLD: 04/10/2021 [facility] 1 % 05/14/2020 12:00:00 AM EST gel 100 APPLY TO LEFT LEG AND LOW BACK UP TO FOUR TIMES A DAY NEEDED APPLY TO LEFT LEG AND LOW BACK UP TO FOU R TIMES A DAY NEEDED SOLD: 10/15/2020 [facility] 1 % 05/14/2020 12:00:00 AM EST gel 100 APPLY TO LEFT LEG AND LOW BACK UP TO FOUR TIMES A DAY NEEDED APPLY TO LEFT LEG AND LOW BACK UP TO FOU R TIMES A DAY NEEDED SOLD: 05/17/2020 [facility] 1 % 06/13/2019 12:00:00 AM EST gel 100 APPLY TO LEFT LEG AND LOW BACK UP TO 4 TIMES PER DAY NEEDED USE DIRECTED APPLY TO LEFT LEG AND LOW BACK UP TO 4 TIMES PER DAY NEEDED USE DIRECTED SOLD: 04/10/2020 [facility] Insurance Providers Payer name Policy type / Coverage type Policy ID Covered constitution party ID Covered constitution party's relationship to purcell Policy Purcell Plan Information [facility] [id number] SP [id number] [employer] [id number] WI2 [id number] [facility] [address] SP [id number] MEDICARE [id number] SP [id number] A MEDICARE [id number] SP [id number] MEDICARE A [id number] Self [id number] A UMR [id number] SPOUSE [id number] [place] [id number] S [id number] MEDICARE [id number] S [id number] BCBS of [facility] Other 0 [id number] Self 0 [employer] [place] Other 0 [id number] Self 0 Medicare Part B of [facility] Other 0 [id number] Self 0 [place] PPO 302/307 [id number] SP [id number] [facility] [address] SP [id number] BC[place] OF [place] 306/806 [id number] SP [id number] [facility] [id number] SP [id number] UMR [facility] [id number] WI2 [id number] [place] PPO 302/307 [id number] SP [id number] BCBS of [facility] Other 0 [id number] Self 0 [employer] [place] Other 0 [id number] Self 0 Medicare Part B of [facility] Other 0 [id number] Self 0 UMR [facility] [id number] [employer] [place] Other 0 [id number] Self 0 Medicare Part B of [facility] Other 0 [id number] Self 0 [employer] [place] Other 0 [id number] Self 0 Medicare Part B of [facility] Other 0 [id number] Self 0 ANSI-Medicare Part B [id number] ANSI-Commercial [id number] ANSI-Commercial [id number] ANSI-Commercial [id number] ANSI-Medicare Part B [id number] ANSI-Commercial [id number] ANSI-Commercial [id number] ANSI-Commercial [id number] [employer] [place] Other [id number] Self [address] [facility] 306/806 [id number] SP [id number] [facility] [id number] [place] [id number] MEDICARE [id number] SP [id number] A ANSI-Commercial [id number] ANSI-Medicare Part B [id number] ANSI-Commercial [id number] ANSI-Commercial [id number] ANSI-Commercial [id number] ANSI-Commercial [id number] ANSI-Medicare Part B [id number] ANSI-Commercial [id number] ANSI-Commercial [id number] ANSI-Commercial [id number] ANSI-Commercial [id number] ANSI-Medicare Part B [id number] [employer] [id number] WI2 [id number] [facility] [place] [id number] [employer] Medigap Part B [id number] Family Dependent [facility] Co Ins Commercial [id number] Self Medicare [facility] Medicare Primary 2...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 OTH SKIN CHANGES DUE TO CHR EXPSR TO NONIONIZING RADIATION Diagnosis 11/11/2020 10:38:00 AM [facility] L82.1 Other seborrheic keratosis OTHER SEBORRHEIC KERATOSIS Diagnosis 11/11/2020 10:38:00 AM [facility] L98.9 Disorder of the skin and subcutaneous ti ssue, unspecified DISORDER OF THE SKIN AND SUBCUTANEOUS TISSUE, UNSPECIFIED Diagnosis 11/11/2020 10:38:0 0 AM [facility] Z12.83 Encounter for screening for malignant ne oplasm of skin ENCOUNTER FOR SCREENING FOR MALIGNANT NEOPLASM OF SKIN Diagnosis 11/11/2020 10:38:00 AM [facility] Surgeries/Procedures Procedure Description Date Indications Data Source(s) Hospital outpatient clinic visit for assessment and ma nagement of a patient Hospital Outpatient Clinic Visit 11/11/2020 12:00:00 AM [facility] Comprehensive eye exam established patient (Signi/Sep Eval. & Man.) Comprehensive eye exam established patient (Signi/Sep Eval. & Man.) 08/18/2020 12:00:00 AM EDT [facility] (Pola Martinez MD [facility]) Scodi Retina, with interpretation and re port (WAIVER OF LIABILITY ON FILE (ABN)) Scodi Retina, with interpretation and re port (WAIVER OF LIABILITY ON FILE (ABN)) 08/18/2020 12:00:00 AM EDT [facility] (Jaden Martinez MD [facility]) Comprehensive eye exam established patient (25) Compre hensive eye exam established patient (25) 08/18/2020 12:00:00 AM EDT [facility] (Pola Martinez MD [facility]) COMPUTERIZED OPHTHALMIC IMAGING RETINA Scodi Retina, w ith interpretation and report (GA) 08/18/2020 12:00:00 AM EDT [facility] (Jaden Martinez MD [facility]) Results No Information Social History Code Duration Value Status Description Data Source(s ) Smoking 03/23/2021 07:19:09 AM EDT Never smoked tobacco (findi ng) completed Never smoked tobacco (finding) [facility] (Pola Martinez MD [facility]) Smoking 11/11/2020 12:00:00 AM EDT Never Smoker completed Never S moker eCW1 ([facility]) Smoking 08/18/2020 08:22:15 AM EDT Never smoked tobacco (findi ng) completed Never smoked tobacco (finding) [facility] (Pola Martinez MD [facility]) Smoking 05/13/2020 12:00:00 AM EST Never Smoker completed Never S moker eCW1 ([facility]) Vital Signs ID Date Data Source UNK Name Value Range Interpretation Code Description Data Source(s) Body weight 257 [lb_av] 257 [lb_av] eCW1 ([facility]) Body height 68 [in_i] 68 [in_i] eCW1 ([facility]) Body mass index (BMI) [Ratio] 39.07 kg/m2 39.07 kg/m2 eCW1 ([facility]) Heart rate 66 /min 66 /min eCW1 ([facility]) Respiratory rate 18 /min 18 /min eCW1 ([facility]) Body temperature 98.5 [degF] 98.5 [degF] eCW1 ( [facility]) Systolic blood pressure 131 mm[Hg] 131 mm[Hg] e CW1 ([facility]) Diastolic blood pressure 80 mm[Hg] 80 mm[Hg] eCW1 ([facility]) Body weight 262 [lb_av] 262 [lb_av] eCW1 ([facility]) Body height 68 [in_i] 68 [in_i] eCW1 ([facility]) Body mass index (BMI) [Ratio] 39.83 kg/m2 39.83 kg/m2 W1 ([facility]) Heart rate 73 /min 73 /min eCW1 ([facility]) Respiratory rate 16 /min 16 /min eCW1 ([facility]) Body temperature 97.7 [degF] 97.7 [degF] eCW1 ( [facility]) Systolic blood pressure 143 mm[Hg] 143 mm[Hg] e CW1 ([facility]) Diastolic blood pressure 90 mm[Hg] 90 mm[Hg] eCW1 ([facility])
[2021-04-19 20:32] VITALS: BP 155/87
== END 2021-04-19 20:59 | disposition home or self-care (01) ==
LOC: M ED 16:59
DX: S56.912A Strain of unspecified muscles, fascia and tendons at forearm level, left arm, initial encounter (principal); X50.0XXA Overexertion from strenuous movement or load, initial encounter; Y92.89 Other specified places as the place of occurrence of the external cause; Y93.9 Activity, unspecified; Y99.9 Unspecified external cause status; I10 Essential (primary) hypertension; Z88.0 Allergy status to penicillin; Z88.8 Allergy status to other drugs, medicaments and biological substances; Z79.899 Other long term (current) drug therapy

== ENCOUNTER → 2022-07-30 | Outpatient (CLI) | payer MEDICARE, BC ==
[~2022-07-30] MED LIST changes: +ADVI200T PO; +B-1100TA2 PO; +B-12100010 PO; +COQ150CH PO; +CURC500C PO; +DICL1GEL3 TOP; +FIBE625T27 PO; +FINA5TAB2 PO; +FLUO20CA22 PO; +PRESCAP PO; +VITA1TAB35 PO; +VITA500075 PO; +VITMTA PO; +[UNRECOGNIZED DRUG - OTHER] PO
== END ==
LOC: M LABSMTC 09:04
PROVIDERS: ATTEND Anesthesiology
DX: Z01.812 Encounter for preprocedural laboratory examination (principal); Z20.822 Contact with and (suspected) exposure to COVID-19

== ENCOUNTER → 2022-08-04 | Day surgery (SDC) | payer MEDICARE, BC ==
[~2022-08-04] VITALS: Ht 177.8 cm; Wt 121.0 kg
[~2022-08-04] MED LIST changes: +LIDOCAINE 2% 100MG/5ML SDV (FOR ANES.) As Ordered ONE; +NS 1,000 ML IV ONE; +propofoL 200 MG/20 ML VIAL As Ordered ONE
[2022-08-04 13:36] VITALS: BP 109/57
== END | disposition home or self-care (01) ==
LOC: M OPP 11:30
PROVIDERS: ATTEND Internal Medicine Gastroenterology
DX: Z12.11 Encounter for screening for malignant neoplasm of colon (principal); Z86.010 Personal history of colon polyps; K64.0 First degree hemorrhoids; I10 Essential (primary) hypertension; E78.00 Pure hypercholesterolemia, unspecified; N40.0 Benign prostatic hyperplasia without lower urinary tract symptoms; Z79.02 Long term (current) use of antithrombotics/antiplatelets; Z79.1 Long term (current) use of non-steroidal anti-inflammatories (NSAID); Z79.899 Other long term (current) drug therapy; Z88.0 Allergy status to penicillin; Z88.1 Allergy status to other antibiotic agents

== ENCOUNTER → 2023-03-17 | Outpatient (CLI) | payer MEDICARE, BC ==
[~2023-03-17] MED LIST changes: +DICL100G10 TOP; -DICL1GEL3 TOP; +FINA-48 PO; -LIDOCAINE 2% 100MG/5ML SDV (FOR ANES.) As Ordered ONE; -NS 1,000 ML IV ONE; -PROS5TAB PO; -propofoL 200 MG/20 ML VIAL As Ordered ONE
[2023-03-21 06:32] LABS: ESTRADIOL 29.9 PG/ML (7.6-42.6); PROSTATIC SPECIFIC AG MONITOR 3.9 NG/ML (0.0-4.0)
== END ==
LOC: M PLALAB 07:06
PROVIDERS: ATTEND Urology
DX: E29.1 Testicular hypofunction (principal); R39.12 Poor urinary stream

== ENCOUNTER → 2023-07-14 | Outpatient (CLI) | payer MEDICARE, BC | LOC: M PLAIMG 08:10 | PROVIDERS: ATTEND Family Medicine | DX: M25.531 Pain in right wrist (principal) ==

== ENCOUNTER → 2023-08-29 | Outpatient (CLI) | payer MEDICARE, BC | LOC: M SOG 07:52 | PROVIDERS: ATTEND Physician Assistant | DX: M51.37 Other intervertebral disc degeneration, lumbosacral region (principal) ==

== ENCOUNTER → 2023-09-09 | Outpatient (CLI) | payer MEDICARE, BC | LOC: M PLARAD 12:19 | PROVIDERS: ATTEND Physician Assistant | DX: M43.16 Spondylolisthesis, lumbar region (principal) ==

== ENCOUNTER → 2023-10-17 | Outpatient (CLI) | payer MEDICARE, BC | LOC: M PAIN 08:00 | PROVIDERS: ATTEND Nurse Practitioner Family | DX: M51.16 Intervertebral disc disorders with radiculopathy, lumbar region (principal); I10 Essential (primary) hypertension; F34.1 Dysthymic disorder; N40.0 Benign prostatic hyperplasia without lower urinary tract symptoms; N52.9 Male erectile dysfunction, unspecified; M10.9 Gout, unspecified; Z79.899 Other long term (current) drug therapy; Z88.0 Allergy status to penicillin; Z88.1 Allergy status to other antibiotic agents; Z88.8 Allergy status to other drugs, medicaments and biological substances ==

== ENCOUNTER → 2023-12-13 | Outpatient (CLI) | payer MEDICARE, BC ==
[~2023-12-13] MED LIST changes: +FLUO-365 PO; -FLUO20CA22 PO; +TRIAMCINOLONE ACETONIDE SUSP 40MG/ML 1ML VIAL As Ordered ONE
== END ==
LOC: M PAIN 10:00
PROVIDERS: ATTEND Anesthesiology
DX: M79.18 Myalgia, other site (principal); M79.10 Myalgia, unspecified site; M54.50 Low back pain, unspecified; G89.29 Other chronic pain; I10 Essential (primary) hypertension; F34.1 Dysthymic disorder; N40.0 Benign prostatic hyperplasia without lower urinary tract symptoms; N52.9 Male erectile dysfunction, unspecified; M10.9 Gout, unspecified; Z79.899 Other long term (current) drug therapy; Z88.0 Allergy status to penicillin; Z88.1 Allergy status to other antibiotic agents; Z88.8 Allergy status to other drugs, medicaments and biological substances
CPT/HCPCS: 20552; J0665; J3301

== ENCOUNTER → 2024-01-17 | Outpatient (CLI) | payer MEDICARE, BC ==
[~2024-01-17] MED LIST changes: -TRIAMCINOLONE ACETONIDE SUSP 40MG/ML 1ML VIAL As Ordered ONE
== END ==
LOC: M PAIN 09:45
PROVIDERS: ATTEND Nurse Practitioner Family
DX: G89.29 Other chronic pain (principal); M79.18 Myalgia, other site; I10 Essential (primary) hypertension; F34.1 Dysthymic disorder; N40.0 Benign prostatic hyperplasia without lower urinary tract symptoms; N52.9 Male erectile dysfunction, unspecified; M10.9 Gout, unspecified; I83.90 Asymptomatic varicose veins of unspecified lower extremity; Z79.899 Other long term (current) drug therapy; Z88.0 Allergy status to penicillin; Z88.1 Allergy status to other antibiotic agents; Z88.8 Allergy status to other drugs, medicaments and biological substances

== ENCOUNTER → 2024-02-08 | Outpatient (CLI) | payer MEDICARE, BC ==
[2024-02-08 10:20] LABS: BASO # 0.1 10^3/uL (0.0-0.2); BASO % 0.9 % (0.0-1.0); EOS # 0.1 10^3/uL (0.0-0.5); EOS % 1.9 % (0.0-3.0); HEMATOCRIT 45.8 % (42.0-52.0); LYMPH # 1.7 10^3/uL (1.5-5.0); MEAN CORPUSCULAR HEMOGLOBIN 28.7 pg (27.0-33.0); MEAN CORPUSCULAR HGB CONC 32.8 g/dl (32.0-36.5); MEAN CORPUSCULAR VOLUME 87.7 fl (80.0-96.0); MONO # 0.7 10^3/uL (0.0-0.8); NEUTROPHILS # 3.8 10^3/uL (1.5-8.5); NEUTROPHILS % 59.6 % (36.0-66.0); PLATELET COUNT, AUTOMATED 186 10^3/uL (150-450); PSA SCREENING 4.28 NG/ML (< 4.00); RED BLOOD COUNT 5.22 10^6/uL (4.30-6.10); WHITE BLOOD COUNT 6.4 10^3/uL (4.0-10.0)
[2024-02-08 10:25] LABS: ESTRADIOL 41.6 PG/ML (<39.8)
[2024-02-09 12:02] LABS: PSA FREE 1.1 ng/mL; PSA TOTAL 5.1 ng/mL (< OR = 4.0)
== END ==
LOC: M PLALAB 07:05
PROVIDERS: ATTEND Urology
DX: R97.20 Elevated prostate specific antigen [PSA] (principal); Z12.5 Encounter for screening for malignant neoplasm of prostate
CPT/HCPCS: 36415; 82670; 84154; 84270; 84403; 85025; G0103

== ENCOUNTER → 2024-03-01 | Outpatient (CLI) | payer MEDICARE, BC ==
[2024-03-01 10:45] LABS: BASO # 0.1 10^3/uL (0.0-0.2); BASO % 0.9 % (0.0-1.0); EOS # 0.2 10^3/uL (0.0-0.5); EOS % 2.3 % (0.0-3.0); HEMATOCRIT 45.7 % (42.0-52.0); HEMOGLOBIN 14.8 g/dl (13.5-17.5); LYMPH # 1.6 10^3/uL (1.5-5.0); LYMPH % 24.5 % (24.0-44.0); MEAN CORPUSCULAR HGB CONC 32.4 g/dl (32.0-36.5); MEAN CORPUSCULAR VOLUME 89.6 fl (80.0-96.0); MONO # 0.7 10^3/uL (0.0-0.8); MONO % 10.3 % (2.0-8.0); NEUTROPHILS % 61.2 % (36.0-66.0); PLATELET COUNT, AUTOMATED 187 10^3/uL (150-450); WHITE BLOOD COUNT 6.5 10^3/uL (4.0-10.0)
[2024-03-01 11:05] LABS: PROSTATIC SPECIFIC AG MONITOR 3.72 NG/ML (< 4.00)
== END ==
LOC: M PLALAB 07:03
PROVIDERS: ATTEND Urology
DX: R97.20 Elevated prostate specific antigen [PSA] (principal)

== ENCOUNTER → 2024-03-15 | Outpatient (CLI) | payer MEDICARE, BC | LOC: M PAIN 09:00 | PROVIDERS: ATTEND Nurse Practitioner Family | DX: G89.29 Other chronic pain (principal); M79.18 Myalgia, other site; I10 Essential (primary) hypertension; F34.1 Dysthymic disorder; N40.0 Benign prostatic hyperplasia without lower urinary tract symptoms; N52.9 Male erectile dysfunction, unspecified; M10.9 Gout, unspecified; M51.26 Other intervertebral disc displacement, lumbar region; Z79.899 Other long term (current) drug therapy; Z88.0 Allergy status to penicillin; Z88.1 Allergy status to other antibiotic agents; Z88.8 Allergy status to other drugs, medicaments and biological substances ==

== ENCOUNTER → 2024-03-26 | Outpatient (CLI) | payer MEDICARE, BC ==
[~2024-03-26] MED LIST changes: +PROHANCE 279.3MG/ML 15ML VIAL ONE; +PROHANCE 279.3MG/ML 5ML VIAL ONE
== END ==
LOC: M PLAIMG 08:40
PROVIDERS: ATTEND Urology
DX: R97.20 Elevated prostate specific antigen [PSA] (principal)
CPT/HCPCS: 72197; A9576

== ENCOUNTER → 2024-04-24 | Outpatient (CLI) | payer MEDICARE, BC ==
[~2024-04-24] MED LIST changes: -PROHANCE 279.3MG/ML 15ML VIAL ONE; -PROHANCE 279.3MG/ML 5ML VIAL ONE
== END ==
LOC: M PAIN 09:30
PROVIDERS: ATTEND Nurse Practitioner Family
DX: M79.18 Myalgia, other site (principal); G89.29 Other chronic pain; I10 Essential (primary) hypertension; F34.1 Dysthymic disorder; N40.0 Benign prostatic hyperplasia without lower urinary tract symptoms; M10.9 Gout, unspecified; Z79.899 Other long term (current) drug therapy; Z88.0 Allergy status to penicillin; Z88.1 Allergy status to other antibiotic agents; Z88.8 Allergy status to other drugs, medicaments and biological substances

== ENCOUNTER → 2024-05-18 | Outpatient (CLI) | payer MEDICARE, BC ==
[2024-05-18 10:33] LABS: ALBUMIN 3.4 G/DL (3.2-5.2); ALKALINE PHOSPHATASE 85 U/L (40-129); ALT/SGPT 28 U/L (7.0-40); AST/SGOT 18 U/L (<34); BILIRUBIN,TOTAL 0.8 MG/DL (0.3-1.2); BLOOD UREA NITROGEN 23 MG/DL (9-23); CALCIUM LEVEL 9.5 MG/DL (8.3-10.6); CARBON DIOXIDE LEVEL 28 MMOL/L (20-31); CHLORIDE LEVEL 106 MMOL/L (98-107); CHOLESTEROL LEVEL 132 MG/DL (<200); CHOLESTEROL RISK RATIO 3.78 (<5); CREATININE FOR GFR 0.85 MG/DL (0.70-1.30); GLOMERULAR FILTRATION RATE > 60.0 (>42); GLUCOSE, FASTING 95 MG/DL (74-106); HDL CHOLESTEROL 34.9 MG/DL (>40); LDL CHOLESTEROL 73.5 MG/DL (<100); NON-HDL-C 97.1 MG/DL; POTASSIUM SERUM 4.7 MMOL/L (3.5-5.1); SODIUM LEVEL 141 MMOL/L (136-145); TOTAL PROTEIN 6.4 G/DL (5.7-8.2); TRIGLYCERIDES LEVEL 118 MG/DL (<150)
[2024-05-18 11:02] LABS: HEMOGLOBIN A1c 5.4 % (4.0-6.0)
== END ==
LOC: M PLALAB 08:05
PROVIDERS: ATTEND Family Medicine
DX: Z00.00 Encounter for general adult medical examination without abnormal findings (principal); E78.2 Mixed hyperlipidemia; R73.03 Prediabetes

== ENCOUNTER → 2024-07-24 | Outpatient (CLI) | payer MEDICARE, BC | LOC: M PAIN 09:30 | PROVIDERS: ATTEND Nurse Practitioner Family | DX: M79.10 Myalgia, unspecified site (principal); G89.29 Other chronic pain; Z79.899 Other long term (current) drug therapy; Z85.828 Personal history of other malignant neoplasm of skin; Z88.0 Allergy status to penicillin; Z88.1 Allergy status to other antibiotic agents; Z88.8 Allergy status to other drugs, medicaments and biological substances; E66.01 Morbid (severe) obesity due to excess calories; Z68.41 Body mass index [BMI] 40.0-44.9, adult ==

== ENCOUNTER → 2025-01-22 | Outpatient (CLI) | payer MEDICARE, BC ==
[~2025-01-22] MED LIST changes: -PROZ20CA11 PO; +PROZ20CA12 PO
[2025-01-22 11:58] LABS: BASO # 0.1 10^3/uL (0.0-0.2); BASO % 1.1 % (0.0-1.0); EOS # 0.2 10^3/uL (0.0-0.5); EOS % 2.6 % (0.0-3.0); LYMPH # 1.6 10^3/uL (1.5-5.0); LYMPH % 23.6 % (24.0-44.0); MONO # 0.6 10^3/uL (0.0-0.8); MONO % 9.7 % (2.0-8.0); NEUTROPHILS # 4.1 10^3/uL (1.5-8.5); NEUTROPHILS % 62.4 % (36.0-66.0); PLATELET COUNT, AUTOMATED 184 10^3/uL (150-450)
[2025-01-22 12:26] LABS: PROSTATIC SPECIFIC AG MONITOR 5.48 NG/ML (< 4.00)
[2025-01-22 12:31] LABS: TESTOSTERONE 974.0 NG/DL (241-827)
== END ==
LOC: M PLALAB 07:09
PROVIDERS: ATTEND Urology
DX: N40.1 Benign prostatic hyperplasia with lower urinary tract symptoms (principal)